=== PATIENT | male | born 1990 | race Asian ===

== ENCOUNTER 2019-08-03 23:35 | Emergency (ER) | payer BC ==
[2019-08-04 00:14] LABS: BASOPHILS # (AUTO) 0.1 10^3/uL (0.0-0.1); BASOPHILS % (AUTO) 0.7 %; EOSINOPHILS # (AUTO) 0.1 10^3/uL (0.0-0.7); EOSINOPHILS % (AUTO) 1.1 %; HGB - HEMOGLOBIN 17.2 g/dL (14.0-18.0); LYMPHOCYTES # (AUTO) 1.7 10^3/uL (1.5-3.5); LYMPHOCYTES % (AUTO) 15.8 %; MEAN CORPUSCULAR HEMOGLOBIN 30.2 pg (27.0-31.0); MEAN CORPUSCULAR VOLUME 88.8 fL (80.0-94.0); MEAN PLATELET VOLUME 9.6 fL (7.4-11.4); MONOCYTES # (AUTO) 0.8 10^3/uL (0.0-1.0); NEUTROPHILS # (AUTO) 7.8 10^3/uL (1.5-6.6); NEUTROPHILS % (AUTO) 73.9 %; PLT - PLATELET COUNT 289 10^3/uL (130-450); RED CELL DISTRIBUTION WIDTH 12.4 % (12.0-15.0); WHITE BLOOD COUNT 10.6 x10^3/uL (4.8-10.8)
[2019-08-04 00:26] LABS: ALBUMIN 4.8 g/dL (3.2-5.5); ALBUMIN/GLOBULIN RATIO 1.3 (1.0-2.2); BILIRUBIN,TOTAL 0.7 mg/dL (0.2-1.0); CALCIUM 9.8 mg/dL (8.5-10.3); CREATININE 1.1 mg/dL (0.6-1.2); TOTAL PROTEIN 8.4 g/dL (6.7-8.2)
--- NOTE | 2019-08-04 00:31 | CT Report ---
Reason: syncope, head injury Procedure Date: 08/04/2019 Accession Number: [id number] / [id number] Procedure: CT - HEAD WO CPT Code: Final Report FULL RESULT: EXAM: CT HEAD EXAM DATE: 08/04/2019 12:23 AM. CLINICAL HISTORY: Syncope, head injury. COMPARISON: None. TECHNIQUE: Multiaxial CT images were obtained from the foramen magnum to the vertex. Reformats: Sagittal and coronal. IV contrast: None. In accordance with CT protocol optimization, one or more of the following dose reduction techniques were utilized for this exam: automated exposure control, adjustment of mA and/or KV based on patient size, or use of iterative reconstructive technique. FINDINGS: Parenchyma: No intraparenchymal hemorrhage. No evidence of mass, midline shift, or CT findings of infarction. Louis-white differentiation is distinct. Extraaxial Spaces: Normal for age. No subdural or epidural collections identified. Ventricles: Normal in size and position. Sinuses and Orbits: Imaged paranasal sinuses, orbits, and mastoids show no significant abnormality. Bones: No evidence of fracture or calvarial defect. Other: None. IMPRESSION: Normal head CT. RADIA
--- NOTE | 2019-08-04 01:19 | ED Physician Documentation ---
PD HPI SYNCOPE - Stated complaint Stated Complaint: EYEBROW LAC/SYNCOPE - Chief complaint Chief Complaint: Neuro - History obtained from History obtained from: Patient - History of Present Illness Witnessed: Witnessed Timing - onset: How many minutes ago (approximately 30 minutes [employer]) Preceding symptoms: Light headed, Generalized weakness Associated symptoms: Seizure Contributing factors: Just stood up Injury occurred: Fell, Head injury Pain level now: 0 Similar symptoms before: Has not had sx before Recently seen: Not recently seen - Additional information Additional information: patient was in a hot tub tonight. He began to feel mild lightheadedness, so he stood up to exit the hot tub. The lightheadedness was exacerbated when he stood, and as he walked away from the hot tub, he had increasing generalized weakness and lightheadedness, culminating in syncope. He struck his head on the ground, sustaining forehead laceration. He was witnessed to have approximately 15 to 30 seconds of seizure-like activity. He subsequently rapidly returned to his bas sheila level of consciousness, and arrives to emergency department asymptomatic except for mild discomfort associated with the head laceration. He denies history of similar symptoms. Review of Systems Constitutional: reports: Reviewed and negative Eyes: reports: Reviewed and negative Ears: reports: Reviewed and negative Cardiac: reports: Reviewed and negative Respiratory: reports: Reviewed and negative GI: reports: Reviewed and negative Skin: reports: Laceration (s) Musculoskeletal: denies: Neck pain Neurologic: reports: Generalized weakness (resolved), Syncope, Seizure, Head injury. denies: Focal weakness, Numbness, Headache PD PAST MEDICAL HISTORY - Past Medical History Past Medical History: No - Past Surgical History Past Surgical History: No - Present Medications Home Medications: Ambulatory Orders Medication Instructions Recorded Confirmed No Known Home Medications 08/03/19 08/03/19 - Allergies Allergies/Adverse Reactions: Allergies Allergy/AdvReac Type Severity Reaction Status Date / Time No Known Drug Allergies Allergy Verified 08/03/19 23:46 - Living Situation Living Arrangement: reports: At home - Social History Does the pt smoke?: No Smoking Status: Never smoker Does the pt drink ETOH?: No PD ED PE NORMAL - Vitals Vital signs reviewed: Yes - General General: Alert and oriented X 3, No acute distress, Well developed/nourished - HEENT HEENT: PERRL, EOMI, Moist mucous membranes - Neck Neck: No bony TTP - Cardiac Cardiac: RRR, No murmur - Respiratory Respiratory: No respiratory distress, Clear bilaterally - Abdomen Abdomen: Soft, Non tender - Back Back: No spinal TTP - Neuro Neuro: Alert and oriented X 3, clamp remover 2-12 intact, No motor deficit, No sensory deficit, Normal speech Eye Opening: Spontaneous Motor: Obeys Commands Verbal: Oriented GCS Score: 15 PD ED PE EXPANDED - HEENT HEENT Visual: 1 - laceration (3cm laceration) Results - Vitals Vitals: Oxygen O2 Source Room air - EKG (time done) No standard instances Rate: Rate (enter#) (44), Sudheer Rhythm: Sinus bradycardia [place]: LAD Intervals: Normal [place], RBBB QRS: Normal Ischemia: Normal ST segments - Labs Labs: Laboratory Tests 08/03/19 08/03/19 23:50 23:50 WBC 10.6 RBC 5.70 Hgb 17.2 Hct 50.6 MCV 88.8 MCH 30.2 MCHC 34.0 RDW 12.4 Plt Count 289 MPV 9.6 Neut # (Auto) 7.8 H Lymph # (Auto) 1.7 [place] # (Auto) 0.8 Eos # (Auto) 0.1 Baso # (Auto) 0.1 Absolute Nucleated RBC 0.00 Nucleated RBC % 0.0 Sodium 141 Potassium 3.8 Chloride 101 Carbon Dioxide 28 Anion Gap 12.0 BUN 19 Creatinine 1.1 Estimated GFR (MDRD) 79 L Glucose 117 H Calcium 9.8 Total Bilirubin 0.7 AST 21 ALT 24 Alkaline Phosphatase 64 Total Protein 8.4 H Albumin 4.8 Globulin 3.6 Albumin/Globulin Ratio 1.3 Lipase 27 - Rads (name of study) CT head Radiology: Prelim report reviewed, See rad report Procedures - Laceration (location) Face left Length in cm: 3 Wound type: Curved Neurovascular status: Sensory intact, Motor intact, Vascular intact Tendon involvement: Tendon intact Anesthesia: Lidocaine 1% Wound Preparation: Chlorhexadine Skin layer closure: Nylon, Interrupted, Running, Size #-0 - enter number (5-0) Other: Patient tolerated well, No complications, Neurovascular intact, Tetanus booster given Complexity: Simple PD MEDICAL DECISION MAKING - ED course Complexity details: reviewed results, re-evaluated patient, considered differential, d/w patient ED course: patient says he has always had a low resting heart rate, and despite being bradycardic in ED, his blood pressures are normal during ED monitoring. also noted to have a RBBB, likely incidental finding regarding tonights episode (unlike his bradycardia, which could potentially make him more prone to syncope in vasovagal setting). seizure activity was preceded by events whose description strongly suggest hypotension (which would most likely be vasovagal given setting/circumstances), and I suspect there was some brief anoxia due to low- flow state resulting in seizure-like activity. I discussed all of this with patient, and instructed him to follow up with PMD for suture removal, discussion of his bradycardia and RBBB, and his seizure-like activity. Departure - Departure Disposition: 01 Home, Self Care Clinical Impression: Syncope Qualifiers: Syncope type: unspecified Qualified Code(s): R55 - Syncope and collapse Head injury Qualifiers: Encounter type: initial encounter Qualified Code(s): S09.90XA - Unspecified injury of head, initial encounter Facial laceration Qualifiers: Encounter type: initial encounter Qualified Code(s): S01.81XA - Laceration without foreign body of other part of head, initial encounter Condition: Good Instructions: ED Head Injury Closed Sleep Mon, ED Laceration Facial Sutr Tape, ED Fainting Unkn Cause Comments: Follow up with your primary care provider for removal of the stitches in 7-10 days. They might recommend further testing regarding what happened tonight, as well as your low heart rate and your abnormal EKG (right bundle branch block). Discharge Date/Time: 08/04/19 02:45
[2019-08-04] MEDS ORDERED: LIDOCAINE 1% 2 ML VIAL SUBQ STA (01:30)
[2019-08-04] MEDS ORDERED: BACITRACIN ZINC OINT 1 PACKET TOP STA (02:17)
[2019-08-04] MEDS ORDERED: TETANUS/DIPHTHERIA/PERTUSSIS 0.5 ML SYRINGE IM ONE (02:23)
[2019-08-04 02:45] VITALS: BP 113/52
== END 2019-08-04 02:45 | disposition home or self-care (01) ==
LOC: ED 23:35
DX: R55 Syncope and collapse (principal); R56.9 Unspecified convulsions; S09.90XA Unspecified injury of head, initial encounter; S01.81XA Laceration without foreign body of other part of head, initial encounter; W18.30XA Fall on same level, unspecified, initial encounter; Y93.89 Activity, other specified; Z23 Encounter for immunization; R00.1 Bradycardia, unspecified; I45.10 Unspecified right bundle-branch block
CPT/HCPCS: 12013; 36415; 70450; 80053; 83690; 85025; 90471; 90715; 93005; 99284; A9270; 81001; 81003; 87086